=== PATIENT | female | born 1970 | race American Indian/Alaskan Native ===

== ENCOUNTER 2021-09-28 13:13 | Observation (INO) | payer OTHER ==
[2021-09-28] MEDS ORDERED: DOCUSATE SODIUM 100 MG CAP PO PRN (13:18)
[2021-09-28] MEDS ORDERED: SODIUM CHLORIDE 0.9% 500 ML 500 ML IV SCH (13:18)
[2021-09-28] MEDS ORDERED: diphenhydrAMINE 25 MG CAP PO PRN (13:18)
[2021-09-28] MEDS ORDERED: ACETAMINOPHEN 325 MG TAB PO PRN (13:18)
[2021-09-28] MEDS ORDERED: ONDANSETRON 4 MG/2 ML INJ IV PRN (13:18)
--- NOTE | 2021-09-28 13:28 | Short Stay Summary ---
Short Stay Documentation Date of service: 09/28/21 Narrative H&P: This is a 50 year-old female with severed anemia due to menorrhagia and uterine fibroids, she's scheduled for hysterectomy October 03/2022. Her hemoglobin was noted to be 5.7 at her Preoperative assessment yesterday. She admitted not transfusion fo PRBC's Past History : 7 Term Births: 3 Premature Births: 1 Living Children: 5 Prev : 1 Elect. Ab: 2 Spont. Ab: 1 # 1 Delivery date: 1995 Delivery type: # 2 Delivery type: [employer]ER History Operations: (03/09/2004) Cholecystectomy (R) shoulder Tubal Ligation D&C: Endometrial Ablation:2017 Abnormal PAP: negative Uterine Anomaly: positive fibroids Infection History HIV Risk Eval: no Hx of STD: None Active Medications: Claritin 10 mg tablet (loratadine) ibuprofen 800 mg tablet (ibuprofen) Take 1 tablet by mouth every eight hours as needed As directed melatonin 10 mg tablet (melatonin) fish oil-dha-epa 1,200-144-216 mg capsule (fish oil-dha-epa) turmeric-turmeric root extract unspecified unspecified (turmeric-turmeric root extract) Current Allergies (reviewed today): PERCOCET (Critical) CODEINE (Critical) Past Medical History: Reviewed history from 07/10/2021 and no changes required: Negative Past Medical History Past Surgical History: Reviewed history from 07/12/2021 and no changes required: (03/09/2004) Cholecystectomy (R) shoulder Tubal Ligation D&C: Endometrial Ablation:2017 Family History Summary: Reviewed history Last on 07/12/2021 and no changes required:09/27/2021 Other Family Member - Has No Family History of Uterine Cancer - Entered On: 03/01/2021 Other Family Member - Has No Family History of Small Bowel Cancer - Entered On: 03/01/2021 Other Family Member - Has No Family History of Stomach Cancer - Entered On: 03/01/2021 Other Family Member - Has No Family History of Pancreatic Cancer - Entered On: 03/01/2021 Other Family Member - Has No Family History of Ovarvian Cancer - Entered On: 03/01/2021 Other Family Member - Has No Family History of Kidney/Urinary Tract Cancer - Entered On: 03/01/2021 Other Family Member - Has No Family History of Spontaneous DVT-PE - Entered On: 03/01/2021 Other Family Member - Has No Family History of Colon Cancer - Entered On: 03/01/2021 Other Family Member - Has No Family History of Brain Cancer - Entered On: 03/01/2021 Other Family Member - Has No Family History of Breast Cancer - Entered On: 03/01/2021 Other Family Member - Has No Family History of Biliary Tract Cancer - Entered On: 03/01/2021 Father - Has Family History of Prostate Cancer - Entered On: 02/06/2021 General Comments - FH: No Family History of Breast Cancer No Family History of Colon Cancer No Family History of Ovarvian Cancer No Family History of DVT/PE on OCP Social History: Reviewed history from 02/06/2021 and no changes required: Patient is Smoking History: Patient has never smoked. Risk Factors: Smoked Tobacco Use: Never smoker Smokeless Tobacco Use: Never Passive Smoke Exposure: no HIV High Risk Behavior: no Exercise: no Seatbelt Use: 100 % PAP Smear History: Date of Last PAP Smear: 02/06/2021 Results: Normal/Negative HPV Alcohol Use: yes Drinks per day: social Drug Use: no Previous Tobacco Use: Signed On - 07/12/2021 Smoked Tobacco Use: Never smoker Smokeless Tobacco Use: Never Passive Smoke Exposure: no HIV High Risk Behavior: no Exercise: no Seatbelt Use: 100 % Alcohol Use: yes Drinks per day: social Drug Use: no - History Principal diagnosis: Severe anemia, menorrhagia and fibroids - Allergies and Medications Current Medications: Allergies acetaminophen [From Percocet] Allergy (Verified 09/22/21 14:39) Itching oxycodone [From Percocet] Allergy (Verified 09/22/21 14:39) Itching Home Medications Medication Instructions Recorded Confirmed Last Taken Type Cetirizine HCl [Zyrtec 10mg tab] 10 mg PO QHS 09/22/21 09/22/21 Unknown History Ibuprofen [Motrin] 800 mg PO Q8HR PRN 09/22/21 09/22/21 Unknown History Melatonin [Melatonin 10MG TAB] 10 mg PO QHS 09/22/21 09/22/21 Unknown History Active Medications Acetaminophen (Acetaminophen 325 Mg Tab) 1,000 mg PO Q6H PRN PRN Reason: Pain MILD(1-3)/Fever >100.5/GOEL Diphenhydramine HCl (Diphenhydramine 25 Mg Cap) 50 mg PO Q6H PRN PRN Reason: Itching Docusate Sodium (Docusate Sodium 100 Mg Cap) 100 mg PO Q12H PRN PRN Reason: Constipation Sodium Chloride (Nacl 0.9% 500 Ml) 500 mls @ 0 mls/hr IV ONCE ONE Stop: 09/28/21 13:19 Ondansetron HCl (Ondansetron 4 Mg/2 Ml Inj) 4 mg IV Q6H PRN PRN Reason: Nausea And Vomiting - Hospital course Hospital course: Patient received 3uPRC's w/ appropriate increase of hgb, no bleeding at this time will allow home - Disposition Condition at discharge: Good Disposition: 01 HOME / SELF CARE / HOMELESS - Discharge Diagnoses (1) Fibroids Status: Acute (2) Menorrhagia Status: Acute (3) Anemia Status: Chronic Qualifiers: Iron deficiency anemia type: chronic blood loss Short Stay Discharge Plan Activity: no restrictions Weight Bearing Status: Full Weight Bearing Diet: regular Follow up with: PRIMARY CARE, [Referring] - 7 Days Prescriptions: medroxyPROGESTERone ACETATE [Medroxyprogesterone Acetate] 10 mg PO DAILY PRN #10 tab PRN Reason: Bleeding
[2021-09-28] MEDS: FERROUS SULFATE 325 MG TAB PO SCH ×2 (17:15→21:00)
[2021-09-29] MEDS: FERROUS SULFATE 325 MG TAB PO SCH ×2 (07:30→14:32)
--- NOTE | 2021-09-29 12:03 | Progress Note ---
Assessment and Plan - Patient Problems (1) Anemia Current Visit: Yes Status: Chronic Qualifiers: Iron deficiency anemia type: chronic blood loss Plan to address problem: patient has received only 1u PRBC's so far. 2nd is ronaldo and RN just went to get it. Questions encouraged and answered, will continue woth course of care and ? provera at D/C if bleeding recurs prior to surgery. (2) Menorrhagia Current Visit: Yes Status: Acute (3) Fibroids Current Visit: Yes Status: Acute Subjective Date of service: 09/29/21 Principal diagnosis: Severe anemia, menorrhagia and fibroids Interval history: Patient resting in bed, no bleeding Objective - Constitutional Vitals: Vital Signs - 12hr 09/29/21 09/29/21 07:17 07:30 Temperature 98.0 F Pulse Rate 67 Respiratory 20 Rate Blood Pressure 127/62 O2 Sat by Pulse 100 98 Oximetry - Labs Labs: Abnormal lab results 09/28/21 Range/Units 23:30 Crossmatch See Detail Medications & Allergies - Medications Allergies/Adverse Reactions: Allergies acetaminophen [From Percocet] Allergy (Verified 09/22/21 14:39) Itching codeine Allergy (Verified 09/28/21 17:15) Itching oxycodone [From Percocet] Allergy (Verified 09/22/21 14:39) Itching Home Medications: Home Medications Medication Instructions Recorded Confirmed Last Taken Type Cetirizine HCl [Zyrtec 10mg tab] 10 mg PO QHS 09/22/21 09/22/21 09/27/21 History Ibuprofen [Motrin] 800 mg PO Q8HR PRN 09/22/21 09/22/21 09/11/21 History Melatonin [Melatonin 10MG TAB] 10 mg PO QHS 09/22/21 09/22/21 09/25/21 History Active Medications: Generic Name Dose Route Start Last Admin Trade Name Freq PRN Reason Stop Dose Admin Acetaminophen 1,000 mg 09/28/21 13:18 Acetaminophen 325 Mg Tab PO Q6H PRN Pain MILD(1-3)/Fever >100.5/GOEL Diphenhydramine HCl 50 mg 09/28/21 13:18 Diphenhydramine 25 Mg Cap PO Q6H PRN Itching Docusate Sodium 100 mg 09/28/21 13:18 Docusate Sodium 100 Mg Cap PO Q12H PRN Constipation Ferrous Sulfate 325 mg 09/28/21 14:00 09/29/21 07:30 Ferrous Sulfate 325 Mg Tab PO 325 mg TID JIGNESH Administration Sodium Chloride 500 mls @ 0 mls/hr 09/28/21 13:18 Nacl 0.9% 500 Ml IV ONCE JIGNESH As Directed Ondansetron HCl 4 mg 09/28/21 13:18 Ondansetron 4 Mg/2 Ml Inj IV Q6H PRN Nausea And Vomiting
[2021-09-29 16:29] VITALS: BP 108/65
[2021-09-29 19:36] LABS: Hematocrit 28.7 % (30.3-42.9); Hemoglobin 8.6 gm/dl (10.1-14.3)
== END 2021-09-29 20:45 | disposition home or self-care (01) ==
LOC: UNDOADMOB 13:13 → 3A 13:13 → OB 16:15
PROVIDERS: ADMIT Obstetrics & Gynecology; ATTEND Obstetrics & Gynecology
DX: D50.0 Iron deficiency anemia secondary to blood loss (chronic) (principal); N92.0 Excessive and frequent menstruation with regular cycle; D25.9 Leiomyoma of uterus, unspecified; Z79.899 Other long term (current) drug therapy; Z98.890 Other specified postprocedural states; Z98.891 History of uterine scar from previous surgery; Z90.49 Acquired absence of other specified parts of digestive tract
CPT/HCPCS: 36415; 36430; 80048; 84703; 85014; 85018; 85025; 86850; 86900; 86901; 86920; G0378; G0379; J7040; P9016; U0003

== ENCOUNTER 2021-10-03 06:41 | Observation (INO) | payer OTHER ==
[2021-09-28 11:10] LABS: Basophils % (Auto) 0.5 % (0.0-1.8); Eosinophils # (Auto) 0.1 K/mm3 (0.0-0.4); Eosinophils % (Auto) 2.9 % (0.0-4.3); Hematocrit 20.6 % (30.3-42.9); Lymphocytes # (Auto) 1.4 K/mm3 (1.2-5.4); Lymphocytes % (Auto) 39.1 % (13.4-35.0); Mean Corpuscular HGB Conc 28 % (30-34); Mean Corpuscular Volume 55 fl (79-97); Monocytes # (Auto) 0.3 K/mm3 (0.0-0.8); Monocytes % (Auto) 8.6 % (0.0-7.3); Platelet Count 284 K/mm3 (140-440); Red Blood Count 3.77 M/mm3 (3.65-5.03); Red Cell Distribution Width 20.4 % (13.2-15.2)
[2021-09-28 11:15] LABS: Hemoglobin 5.7 gm/dl (10.1-14.3)
--- NOTE | 2021-09-28 11:19 | Anesthesia Consultation ---
Anesthesia Consult and Med Hx Date of service: 10/03/21 - Airway Anesthetic Teeth Evaluation: Partials ROM Head & Neck: Adequate Mental/Hyoid Distance: Adequate Mallampati Class: Class II Intubation Access Assessment: Good - Pre-Operative Health Status ASA Pre-Surgery Classification: ASA3 Proposed Anesthetic Plan: General Nerve Block: TAP - Pulmonary Hx Smoking: No Hx Respiratory Symptoms: No (+2FS) Hx Pneumonia: Yes () Hx Sleep Apnea: No - Central Nervous System Hx Psychiatric Problems: No - Gastrointestinal Hx Gastroesophageal Reflux Disease: No - Hematic Hx Anemia: Yes (5.7/20.6) Hx Sickle Cell Disease: No - Other Systems Hx Alcohol Use: Yes (SOCIALLY) Hx Substance Use: No Hx Cancer: No Hx Obesity: Yes
[2021-09-28 11:24] LABS: Blood Urea Nitrogen 10 mg/dL (7-17); Calcium 9.2 mg/dL (8.4-10.2); Hemolysis Index 0
[2021-09-28 11:25] LABS: BUN/Creatinine Ratio 20
--- NOTE | 2021-10-03 00:03 | History and Physical Report ---
History of Present Illness Date of examination: 09/27/21 Chief complaint: Menorrhagia, uterine fibroids and anemia History of present illness: This a 51 year-old female patient presents with menstrual disorder. The symptoms began 2017. On a scale of mild to severe, the intensity is described as a severe. She complains of heavy bleeding and history of fibroids. She had an ablation and UFE(Dr. Ortiz) 2018. Bleeding improved for 6-8mnths. Bleeds heavy 3/3-4 days. She is receiving Fe infusons w/ hematology and required a transfusion of 3uPRBS for hgb 5.7. She presents now for hysterectomy with removal of both fallopian tubes. Past History : 7 Term Births: 3 Premature Births: 1 Living Children: 5 Prev : 1 Elect. Ab: 2 Spont. Ab: 1 # 1 Delivery date: 1995 Delivery type: # 2 Delivery type: # 3 Delivery type: # 4 Delivery type: Comments: twins [employer] History Operations: (03/09/2004) Cholecystectomy (R) shoulder Tubal Ligation D&C: Endometrial Ablation:2017 UFE 2017 Abnormal PAP: negative Uterine Anomaly: positive fibroids Infection History HIV Risk Eval: no Hx of STD: None Active Medications: Claritin 10 mg tablet (loratadine) ibuprofen 800 mg tablet (ibuprofen) Take 1 tablet by mouth every eight hours as needed As directed melatonin 10 mg tablet (melatonin) fish oil-dha-epa 1,200-144-216 mg capsule (fish oil-dha-epa) turmeric-turmeric root extract unspecified unspecified (turmeric-turmeric root extract) Current Allergies (reviewed today): PERCOCET (Critical) CODEINE (Critical) Past Medical History: Reviewed and updated today: Anemia Blood Transfusion Past Surgical History: Reviewed history from 07/12/2021 and no changes required: (03/09/2004) Cholecystectomy (R) shoulder Tubal Ligation D&C: Endometrial Ablation:2017 Family History Summary: Reviewed history Last on 07/12/2021 and no changes required:10/02/2021 Other Family Member - Has No Family History of Uterine Cancer - Entered On: 03/01/2021 Other Family Member - Has No Family History of Small Bowel Cancer - Entered On: 03/01/2021 Other Family Member - Has No Family History of Stomach Cancer - Entered On: 03/01/2021 Other Family Member - Has No Family History of Pancreatic Cancer - Entered On: 03/01/2021 Other Family Member - Has No Family History of Ovarvian Cancer - Entered On: 03/01/2021 Other Family Member - Has No Family History of Kidney/Urinary Tract Cancer - Entered On: 03/01/2021 Other Family Member - Has No Family History of Spontaneous DVT-PE - Entered On: 03/01/2021 Other Family Member - Has No Family History of Colon Cancer - Entered On: 03/01/2021 Other Family Member - Has No Family History of Brain Cancer - Entered On: Other Family Member - Has No Family History of Breast Cancer - Entered On: 03/01/2021 Other Family Member - Has No Family History of Biliary Tract Cancer - Entered On: 03/01/2021 Father - Has Family History of Prostate Cancer - Entered On: 02/06/2021 General Comments - FH: No Family History of Breast Cancer No Family History of Colon Cancer No Family History of Ovarvian Cancer No Family History of DVT/PE on OCP Social History: Reviewed history from 02/06/2021 and no changes required: Patient is Smoking History: Patient has never smoked. Risk Factors: Smoked Tobacco Use: Never smoker Smokeless Tobacco Use: Never Passive Smoke Exposure: no HIV High Risk Behavior: no Exercise: no Seatbelt Use: 100 % PAP Smear History: Date of Last PAP Smear: 02/06/2021 Results: Normal/Negative HPV Alcohol Use: yes Drinks per day: social Drug Use: no Previous Tobacco Use: Signed On - 07/12/2021 Smoked Tobacco Use: Never smoker Smokeless Tobacco Use: Never Passive Smoke Exposure: no HIV High Risk Behavior: no Exercise: no Seatbelt Use: 100 % Alcohol Use: yes Drinks per day: social Drug Use: no Review of Systems Complains of menorrhagia and abnormal vaginal bleeding. Denies vaginal discharge, incontinence, dysuria, hematuria, urinary frequency, amenorrhea, pelvic pain, genital sores, decreased libido, painful periods, painful sex, urinary urgency, hot flashes, vaginal dryness, vaginal it juan carlos and vaginal odor. The review of systems is negative for General, , CV, Resp, GI, Endo, Breast, MS, Derm, Neuro, Psych, Eyes, ENT, Allergy and Heme. Physical Exam Appearance: well developed, well nourished, no acute distress Other Exams Lungs: no rales, rhonchi, or wheezes Heart: S1, S2, no murmur, rub, or gallop Genitourinary Exam Uterus: deferred for EUA Impression & Recommendations: Problem # 1: Fibroids of uterus; Intramural (ICD-218.1) (GHA21-M48.1 Diagnosis explained to patient . Discussed with patient various medical, surgical and radiological therapies common for treatment including, but not limited to, myomectomy, hysterectomy and uterine artery embolization. Discussed risks and benefits of laparotomy, laparoscopy, vaginal and robotic assisted approaches for hysterectomies. Patient desires definitive treatment in the form of robot assisted laparoscopic total hysterectomy. The risks and alternatives for this surgery were reviewed with the patient. She was informed of the risks of the surgery including, but not limited to, pain, infection, ble eding possibly heavy enough to require a blood transfusion with associated risks of infections (hepatitis and HIV) and transfusion reactions, possible damage to bowel, bladder or ureter(s) and surrounding organs. She was also informed of slight increased risk for vaginal cuff breakdown with the robotic approach. Patient understands that this surgery will make her sterile. Indications to abort a robotic/laparoscopic procedure and perform an open procedure were explained. Patient understands if her ovaries are removed she will become menopausal. Patient advised the small risks of spreading of malignancy if morcellation is required during the surgery patient understands and approves performing if necessary. Questions answered. Consent reviewed and signed The patient was instructed/informed the following: The normal length of hospital stay for this procedure. Nothing to eat or drink after midnight the evening prior to surgery.. Pre-op instruction sheets given. Wound care instructions given. Problem # 2: Menorrhagia (ICD-626.2) ([id number]) She desires ovarian conservation.She was informed she may require surgery later to have her ovaries removed for a benign or malignant condition. Problem # 3: Body Mass Index 38.0-38.9, adult (ICD-V85.38) (UJB26-M34.38) Problem #4: Anemia s/p Transfusion fo 3uPRBC's and fe infusions Medications and Allergies Allergies Allergy/AdvReac Type Severity Reaction Status Date / Time acetaminophen [From Percocet] Allergy Itching Verified 09/22/21 14:39 codeine Allergy Itching Verified 09/28/21 17:15 oxycodone [From Percocet] Allergy Itching Verified 09/22/21 14:39 Home Medications Medication Instructions Recorded Confirmed Last Taken Type Cetirizine HCl [Zyrtec 10mg tab] 10 mg PO QHS 09/22/21 09/29/21 09/27/21 History Ibuprofen [Motrin] 800 mg PO Q8HR PRN 09/22/21 09/29/21 09/11/21 History Melatonin [Melatonin 10MG TAB] 10 mg PO QHS 09/22/21 09/29/21 09/25/21 History medroxyPROGESTERone ACETATE 10 mg PO DAILY PRN #10 tab 09/29/21 Unknown Rx [Medroxyprogesterone Acetate] Active Meds: Active Medications Celecoxib (Celecoxib 200 Mg Cap) 400 mg PO PREOP JIGNESH Fentanyl (Fentanyl 100 Mcg/2 Ml Inj) 100 mcg IV ONCE JIGNESH Lactated Ringer's (Lactated Ringers) 1,000 mls @ 125 mls/hr IV DIRECT JIGNESH Cefazolin Sodium (Ancef/Sterile Water 2 Gm/20 Ml) 2 gm in 20 mls @ 80 mls/hr IV PREOP NR; Protocol Magnesium Oxide (Magnesium Oxide 400 Mg Tab) 400 mg PO ONCE JIGNESH Methocarbamol (Methocarbamol 750 Mg Tab) 1,500 mg PO ONCE JIGNESH Midazolam HCl (Midazolam 2 Mg/2 Ml Inj) 2 mg IV PREOP NR Stop: 10/03/21 23:59 Exam Vital Signs Temp Pulse Resp BP Pulse Ox 97.9 F 79 16 132/69 100 09/28/21 10:25 09/28/21 10:25 09/28/21 10:25 09/28/21 10:25 09/28/21 10:25 Results - Labs 09/28/21 06:00 09/28/21 06:00 Assessment and Plan - Patient Problems (1) Fibroids Status: Acute (2) Menorrhagia Status: Acute (3) Anemia Status: Chronic Qualifiers: Iron deficiency anemia type: chronic blood loss
[~2021-10-03 06:41] MED LIST: ACETAMINOPHEN 500 MG TAB PO SCH; CELECOXIB 200 MG CAP PO SCH; LACTATED RINGERS 1,000 ML IV SCH; MAGNESIUM OXIDE 400 MG TAB PO SCH; MIDAZOLAM 2 MG/2 ML INJ IV NR; ceFAZolin/Water 2 GM/20 ML 2 GM/20 ML SYRINGE IV NR; fentaNYL 100 MCG/2 ML INJ IV SCH
[2021-10-03] MEDS ORDERED: BACTERIOSTATIC SODIUM CHLORIDE 0.9% 30 ML VIAL INFILTRATI ONE (06:49)
[2021-10-03] MEDS ORDERED: ceFAZolin/STERILE WATER 2 GM/20 ML SYRINGE IV NR (07:00)
[2021-10-03] MEDS ORDERED: propofoL 200 MG/20 ML VIAL IV ONE (07:12)
[2021-10-03] MEDS ORDERED: LIDOCAINE MPF (2%) 20 MG/1 ML VIAL 5 ML ONE (07:12)
[2021-10-03] MEDS ORDERED: dexAMETHasone 20 MG/5 ML VIAL ONE (07:12)
[2021-10-03] MEDS ORDERED: ROCURONIUM 50 MG/5 ML INJ IV ONE (07:12)
[2021-10-03] MEDS ORDERED: ONDANSETRON 4 MG/2 ML INJ ONE (07:12)
[2021-10-03] MEDS ORDERED: SUCCINYLCHOLINE CHLORIDE 200 MG/10 ML INJ MDV ONE (07:12)
[2021-10-03] MEDS ORDERED: HYDROmorphone 1 MG/1 ML INJ ONE (07:12)
[2021-10-03] MEDS ORDERED: ePHEDrine SULFATE 50 MG/1 ML INJ ONE (07:12)
[2021-10-03] MEDS ORDERED: NEOMY 40 MG/POLYMYXIN B 200,000 UNITS/ML (GU) AMPULE IR ONE ×2 (07:29→09:44)
[2021-10-03 07:38] LABS: Hemoglobin 8.7 gm/dl (10.1-14.3)
[2021-10-03] MEDS ORDERED: BUPIVACAINE-EPINEPHRINE/PF 0.5%-1:200,000 (30 ML) VIAL INFILTRATI ONE (07:41)
[2021-10-03] MEDS ORDERED: dexAMETHasone 4 MG/ML VIAL ONE (07:41)
[2021-10-03] MEDS ORDERED: ANTICOAGULANT SOD CITRATE SOLUTION MC ONE ×2 (07:52→09:45)
[2021-10-03] MEDS ORDERED: fentaNYL 100 MCG/2 ML INJ ONE (09:02)
[2021-10-03] MEDS ORDERED: VASOPRESSIN 20 UNIT/1 ML INJ ONE (09:28)
[2021-10-03] MEDS ORDERED: SODIUM CHLORIDE 0.9% 0 ML ONE (09:28)
[2021-10-03] MEDS ORDERED: SODIUM CHLORIDE 0.9% IRR 1,500 ML BOTTLE IR ONE (09:44)
[2021-10-03] MEDS ORDERED: SODIUM CHLORIDE 0.9% IRRIG SOLN 2000 ML IR ONE (09:45)
[2021-10-03] MEDS ORDERED: METHYLENE BLUE 50 MG/10 ML AMP ONE (09:58)
[2021-10-03] MEDS ORDERED: METHYLENE BLUE 50 MG/10 ML AMP IRRIGATION ONE (10:25)
[2021-10-03] MEDS ORDERED: SUGAMMADEX SODIUM 200 MG/2 ML VIAL IV ONE ×2 (10:51→10:54)
[2021-10-03] MEDS ORDERED: LACTATED RINGERS 1,000 ML ONE (11:32)
[2021-10-03] MEDS: HYDROmorphone 0.5 MG/0.5 ML INJ IV PRN ×4 (12:25→13:18)
--- NOTE | 2021-10-03 12:52 | Operative Report ---
Operative Report Operative Report: Date: 10/03/2021 Preoperative diagnosis: 1. Menorrhagia 2. Uterine fibroid 3. Body mass index of 41.6 kg/m 4. Anemia requiring blood transfusion Postoperative diagnosis: 1. Menorrhagia 2. Uterine fibroid 3. Body mass index of 41.6 kg/m 4. Anemia requiring blood transfusion Procedure: 1. Robotic-assisted laparoscopic total hysterectomy with bilateral salpingectomy Surgeon: Daria Quiroga MD Photo Cartographer: Josie Vera MD Anesthesiologist: Dr. Tapia Anesthesia: General endotracheal anesthesia EBL: Approximately 200 mL Findings: EUA: Uterus palpated to approximately 16-18 weeks. Uterus was sounded to 13 cm. Grossly normal interrupted tubes and ovaries. Procedure: Patient was taken to the OR and placed in the supine position. General anesthesia was induced and an oral gastric tube was placed. Her neck and head were placed on foam support. Foam eye protection with goggles were secured in place. Then foam face protection was placed and secured. Foam shoulder pads were then positioned on her shoulders for Trendelenburg positi oning. She was then placed in dorsolithotomy position. Exam under anesthesia as above. The abdomen and vagina were then prepped and draped in the usual sterile fashion. Timeout was performed. A Espinoza catheter was inserted into the bladder with drainage of clear yellow urine. The operative speculum was introduced into the vagina and the anterior lip of the cervix was grasped with single-toothed tenaculum. The uterus was sounded to 13 cm. The cervix was progressively dilated to allow the large V care uterine manipulator. The bulb of the manipulator was inflated and the speculum and tenaculum were removed. The cup of the manipulator was placed around the cervix and the blue occluder of the manipulator was properly positioned in the vagina and secured. A laparotomy sponge that was saturated with a solution of polymyxin and saline was placed in the vagina to ensure pneumoperitoneum. Sterile gloves were placed and attention was turned to the abdomen. A 10 mm midline vertical supraumbilical incision was made approximately 10 cm superior to the elevated fundus of the uterus. A 10-12 mm trocar with the laparoscope and camera attached was introduced through this incision under direct visualization. The abdomen was insufflated. No obvious bowel, bladder, ureteral, or major vascular injury was noted. The patient was then placed in steep Trendelenburg position and the following trochars were placed under direct visualization: 8 mm robotic trochars were placed through incisions made in the bilateral midclavicular lower abdominal region approximately 10 cm lateral to the midline incision, and a 5 mm trocar was placed through an incision made in the right lower lateral pelvis. The 10 mm laparoscope was then replaced by a 5 mm laparoscope that was placed through the 5 millimeter lateral trocar. The 12 mm trocar was then removed and the Osmany Caal fascial closure device was placed through the incision and a 0 Vicryl was placed through the fascia. Once the suture was secured the 12 mm trocar was reintroduced. Once the trochars were in the appropriate positions, the da Guille robot system was engaged. The EndoShears and bipolar device was placed through the 8 mm trochars and positioned then attention was turned to the console. The uterus was elevated and bilateral salpingectomy was performed. Each tube was removed through the 5 mm trocar and sent to pathology in separate containers. Then the utero-ovarian ligaments were clamped. cauterized and incised bilaterally using 30 W of energy. Then the round ligaments were clamped, cauterized and incised bilaterally. The anterior leaf of the broad ligament was elevated and with careful blunt and sharp dissection the bladder flap was created and dissected away from the lower uterine segment and cervix. The posterior leaf of the broad ligament was dissected away from the uterine vessels. The cup of the uterine manipulator was palpated both anteriorly and posteriorly. The bladder was further dissected away from the lower uterine segment. The uterine vessels were then clamped and cauterized bilaterally. Blanching of the uterus was then noted. Attention was again turned to the anterior lower uterine segment and the bladder was confirmed to be away from the operative field. Then attention was turned again to the posterior where the cup of the manipulator was palpated and a colpotomy was performed down to the cup. The incision was extended in the lateral position to the uterine vessels that were again clamped and cauterized and incised. Continuing along the cup of the manipulator in a circumferential manner the colpotomy was completed. The uterus and cervix were then removed through the vaginal incision. The pelvis was irrigated with warm normal saline. A moist laparotomy sponge was placed in the vagina to maintain pneumoperitoneum. The vagina cuff was reapproximated using V LOC 180 suture. Then a J stitch was performed to secure the suture. Again the pelvis was copiously irrigated with polymixin in warm normal saline. The laparotomy sponge was removed from the vagina. No obvious evidence of bowel, bladder, ureteral, or major vascular injury was noted. Once hemostasis was noted, Surgicel was applied to the operative field to ensure hemostasis. Then the instruments were removed, the robot was disengaged. The 12 mm trocar was removed and the fascia was ligated with the 0 Vicryl suture that was placed at the beginning of the procedure. The patient was taken out of Trendelenburg position, the abdomen was desufflated, the remaining trochars were removed. Incisions were reapproximated using 4-0 Monocryl in a subcuticular manner. Surgiseal was placed over the other incisions. The vagina was then inspected, the cuff was palpated to be intact and no bleeding was noted and clear yellow urine was draining into the Espinoza bag from the bladder at the end of the procedure. Counts were correct 3. Patient was taken to recovery room in stable condition.
--- NOTE | 2021-10-03 13:13 | Post Anesthesia Evaluation ---
- Post Anesthesia Evaluation Patient Participated: Yes Airway Patent: Yes Stable Respiratory Function: Yes Nausea/Vomiting: No Temp > 96.8F: Yes Pain Manageable: Yes Adequeate Hydration: Yes Anesthesia Complications: No
[2021-10-03] MEDS ORDERED: MORPHINE 2 MG/1 ML INJ IV PRN (13:30)
[2021-10-03] MEDS ORDERED: METOCLOPRAMIDE 10 MG/2 ML INJ IV PRN (13:30)
[2021-10-03] MEDS ORDERED: METOCLOPRAMIDE 10 MG TAB PO PRN (13:30)
[2021-10-03] MEDS ORDERED: LACTATED RINGERS 1,000 ML IV SCH (13:30)
[2021-10-03] MEDS ORDERED: ONDANSETRON 4 MG/2 ML INJ IV PRN (13:30)
[2021-10-03] MEDS: MORPHINE 4 MG/1 ML INJ IV PRN ×2 (15:03→20:06)
[2021-10-03] MEDS ORDERED: ACETAMINOPHEN 500 MG TAB PO SCH (16:00)
[2021-10-03] MEDS ORDERED: HYDROmorphone 0.5 MG/0.5 ML INJ IV SCH (16:48)
[2021-10-03] MEDS: ceFAZolin/NS 1 GM/50 ML 1 GM/50 ML BAG IV SCH (17:02)
[2021-10-03] MEDS ORDERED: ALUM-MAG HYDROXIDE-SIMETHICONE 200-200-20MG/5ML ORAL LIQD 30 ML PO PRN (17:32)
--- NOTE | 2021-10-03 17:37 | Progress Note ---
Assessment and Plan - Patient Problems (1) History of robot-assisted laparoscopic hysterectomy Current Visit: Yes Status: Acute Plan to address problem: Operative findings and procedure explained. Will try antacid for discomfort and observe closely. Plan of care explained Questions encouraged and answered. She voiced understanding and agrees with POC (2) Fibroids Current Visit: No Status: Resolved (3) Menorrhagia Current Visit: No Status: Resolved (4) Anemia Current Visit: No Status: Chronic Qualifiers: Iron deficiency anemia type: chronic blood loss Subjective - Subjective Date of service: 10/03/21 Principal diagnosis: DOD s/p RAlth W/ bs, maurice Interval history: Resting in bed, denies bleeding Complains of midepigastric pain, sharp, no nausea/vomiting, states it feels like gas Objective - Vital Signs Latest vital signs: Vital Signs Temp Pulse Resp BP BP Pulse Ox 10/03/21 16:06 97.8 F 84 20 132/86 96 10/03/21 14:18 98 10/03/21 14:14 97.7 F 87 16 140/82 98 10/03/21 13:30 97.8 F 85 14 122/77 96 10/03/21 13:15 85 14 133/80 96 10/03/21 13:00 83 14 139/74 96 10/03/21 12:45 87 18 138/77 99 10/03/21 12:30 86 19 139/83 99 10/03/21 12:25 80 14 150/84 100 10/03/21 12:20 76 14 150/83 100 10/03/21 12:15 79 153/88 100 10/03/21 12:10 84 19 149/81 100 10/03/21 12:04 97 F L 96 H 16 143/82 100 10/03/21 08:12 72 16 121/60 100 10/03/21 08:07 70 14 122/64 100 10/03/21 08:02 72 14 120/62 100 10/03/21 07:57 66 16 123/58 100 10/03/21 07:52 71 16 113/60 100 10/03/21 07:37 98.0 F 72 16 131/67 100 Intake and Output 10/03/21 10/03/21 10/03/21 06:59 14:59 22:59 Intake Total 1300 Output Total 560 Balance 740 Intake: IV 1300 Output: Urine 560 Other: Voiding Method Toilet - Exam Breasts: Present: deferred Lungs: Present: Normal air movement Abdomen: Present: normal appearance, soft, normal bowel sounds. Absent: distention, tenderness, guarding - Labs Labs: Abnormal lab results 10/03/21 Range/Units 07:15 Hgb 8.7 L (10.1-14.3) gm/dl Hct 30.0 L (30.3-42.9) %
[2021-10-03] MEDS: KETOROLAC 30 MG/1 ML INJ IV SCH ×2 (17:45→19:28)
[2021-10-03] MEDS: FAMOTIDINE 20 MG TAB PO SCH (18:30)
--- NOTE | 2021-10-03 19:20 | Event Note ---
Date: 10/03/21 Continues to complain of midepigastric sharp pain and pelvic pain unresponsive to Toradol 30mg IV at 545p, MSO4 4mg IV at 3p, Diluadid 0.25mg IV at 4p and Tylenol 1000mg at 3p. Will proceed with CT scan abdomen/pelvis. H/H pending.
[2021-10-03 19:52] LABS: Hematocrit 30.3 % (30.3-42.9); Hemoglobin 8.8 gm/dl (10.1-14.3)
[2021-10-03] MEDS ORDERED: KETOROLAC 30 MG/1 ML INJ IV SCH (20:00)
[2021-10-03] MEDS: SIMETHICONE 80 MG CHEW TAB PO PRN (20:07)
[2021-10-03] MEDS: ACETAMINOPHEN 500 MG TAB PO SCH (22:04)
[2021-10-04] MEDS: ceFAZolin/NS 1 GM/50 ML 1 GM/50 ML BAG IV SCH (01:18)
[2021-10-04] MEDS: SIMETHICONE 80 MG CHEW TAB PO PRN ×3 (01:19→12:30)
[2021-10-04] MEDS: FAMOTIDINE 20 MG TAB PO SCH ×2 (01:20→10:43)
[2021-10-04] MEDS: KETOROLAC 30 MG/1 ML INJ IV SCH (02:50)
[2021-10-04 07:39] LABS: Hematocrit 27.9 % (30.3-42.9); Hemoglobin 8.1 gm/dl (10.1-14.3)
[2021-10-04] MEDS: ACETAMINOPHEN 500 MG TAB PO SCH (08:05)
[2021-10-04] MEDS ORDERED: diphenhydrAMINE 25 MG/10 ML ORAL LIQUID PO NR (09:32)
[2021-10-04 09:34] VITALS: BP 146/77
[2021-10-04] MEDS ORDERED: KETOROLAC 60 MG/2 ML INJ IM NR (09:51)
--- NOTE | 2021-10-04 09:57 | Discharge Summary ---
Providers - Providers Date of Admission: 10/03/21 12:40 Date of discharge: 10/04/21 Attending physician: MIKEY LI Primary care physician: [employer]IRE[employer] OFFICER Hospitalization Condition: Good Procedures: JITENDRA w/ RICHARD Hospital course: Normal Disposition: 01 HOME / SELF CARE / HOMELESS Final Discharge Diagnosis (Prints w/discharge instructions): JITENDRA w/ BS - Discharge Diagnoses (1) History of robot-assisted laparoscopic hysterectomy Status: Acute (2) Fibroids Status: Resolved (3) Menorrhagia Status: Resolved (4) Anemia Status: Chronic Qualifiers: Iron deficiency anemia type: chronic blood loss Core Measure Documentation - Palliative Care Palliative Care/ Comfort Measures: Not Applicable - Core Measures Any of the following diagnoses?: none Exam - Constitutional Vitals: Feels much better today, pain controlled, improved after she received Simethicone and +flatus Temp Pulse Resp BP Pulse Ox 97.9 F 75 20 146/77 100 10/04/21 08:32 10/04/21 08:32 10/04/21 08:32 10/04/21 08:32 10/04/21 08:32 General appearance: Present: no acute distress - Neck Neck: Present: supple - Respiratory Respiratory effort: normal Respiratory: bilateral: CTA - Cardiovascular Rhythm: regular - Extremities Extremities: no ischemia, No edema - Abdominal General gastrointestinal: Present: soft, non-tender, non-distended, normal bowel sounds Female genitourinary: Present: other (no bleeding) - Integumentary Integumentary: Present: clear, warm, dry (incisions:C/D/I) - Psychiatric Psychiatric: appropriate mood/affect, intact judgment & insight, memory intact, cooperative - Neurologic Neurologic: CNII-XII intact Plan Activity: other (No sex. No driving, ambulate on your property ~1mile a day. Use your incentive spirometer every hour while awake. Rotate ankles while lying and sitting to prevent blood clots from developig in your legs and lungs.) Weight Bearing Status: Full Weight Bearing Diet: regular (Eat small meals frequently. Drink ~100oz water a day. Avoid hig zay, high fat and spicy foods. ) Wound: open to air, keep clean and dry Special Instructions: no heavy lifting (greater than 25lbs) Additional Instructions: Take Ibuprofen every 8 hours once you arrive home. Take Tylenol every 8hours as well. Alternate Ibuprofen and Tylenol as following for the next 24 hours: Take your first dose of Tylenol at ~4p today, then take Ibuprofen at 8pm today and continue as such for 24hours, then may take medications as need. If Tramadol is needed take Benadryl 25mg prior to taking Tramadol. Follow up with: PRIMARY CARE, [Primary Care Provider] - 7 Days MIKEY LI MD [Staff Physician] - (As scheuduled) Prescriptions: Docusate Sodium [Colace] 100 mg PO BID PRN #30 capsule PRN Reason: Constipation Ferrous Sulfate [Ferrous Sulfate 324 MG] 324 mg PO DAILY #90 tab Ibuprofen [Motrin 800 MG tab] 800 mg PO Q8H PRN #30 tablet PRN Reason: Pain, Moderate (4-6) traMADoL [Ultram 50 MG tab] 25 mg PO Q6H PRN #10 tablet PRN Reason: Pain, Moderate (4-6)
[2021-10-04] MEDS ORDERED: diphenhydrAMINE 25 MG CAP PO PRN (11:00)
[2021-10-04] MEDS ORDERED: IBUPROFEN 800 MG TAB PO PRN (12:44)
[2021-10-04] MEDS ORDERED: traMADol 50 MG TAB PO PRN ×2 (12:44)
--- NOTE | 2021-10-04 12:53 | Post Anesthesia Evaluation ---
- Post Anesthesia Evaluation Patient Participated: Yes Airway Patent: Yes Nausea/Vomiting: No Temp > 96.8F: Yes Pain Manageable: Yes Adequeate Hydration: Yes Anesthesia Complications: No Block Receding Appropriately: Yes Patient on Ventilator: No
== END 2021-10-04 13:30 | disposition home or self-care (01) ==
LOC: OR 06:41 → OB 12:40
PROVIDERS: ADMIT Obstetrics & Gynecology; ATTEND Obstetrics & Gynecology
DX: N92.0 Excessive and frequent menstruation with regular cycle (principal); Z20.822 Contact with and (suspected) exposure to COVID-19; D25.1 Intramural leiomyoma of uterus; D50.0 Iron deficiency anemia secondary to blood loss (chronic); Z90.710 Acquired absence of both cervix and uterus; Z90.49 Acquired absence of other specified parts of digestive tract; Z98.891 History of uterine scar from previous surgery; Z98.51 Tubal ligation status; Z68.38 Body mass index [BMI] 38.0-38.9, adult
CPT/HCPCS: 36415; 58554; 64488; 80048; 81025; 84703; 85014; 85018; 85025; 86850; 86900; 86901; 88302; 88307; 96365; 96366; 96372; 96375; 96376; G0378; G0379; J0330; J0690; J1100; J1170; J1885; J2250; J2270; J2405; J2704; J3010; J3490; J7120; Q9968; S2900; U0003; 64450